=== PATIENT | male | born 2000 | race Caucasian/White ===

== ENCOUNTER → 2021-10-14 | Outpatient (CLI) | payer OTHER ==
--- NOTE | 2021-10-14 15:40 | 2DMMODE ---
[place] [address] 2 D/M-MODE ECHOCARDIOGRAM Name: DOMINICK SINCLAIR Room: [facility].#: [id number] Admission: 10/14/21 Attend Phys: Jeff Grewal Discharge: Date of : 89 Date of Service: 10/14/21 1540 Report #: [id number] THIS REPORT FOR: cc: Cortez Ledesma MD, William MD Holkins,Keshawn Holguin MD [facility] ~ APPROVED REPORT Study performed: 10/14/2021 15:34:23 EXAM: Comprehensive 2D, Doppler, and color-flow Echocardiogram Patient Location: Out-Patient BSA: 2.22 HR: 75 bpm BP: 120/70 mmHg Other Information Study Quality: Good Indications Tachycardia 2D Dimensions IVSd: 11.51 (7-11mm) LVOT Diam: 20.06 (18-24mm) LVDd: 58.60 mm PWd: 9.50 (7-11mm) Ascending Ao: 28.73 (22-36mm) LVDs: 40.14 (25-40mm) Aortic Root: 29.95 mm Volumes Left Atrial Volume (Systole) LA ESV Index: 29.00 mL/m2 Aortic Valve AoV Peak Patrick.: 1.43 m/s AO Peak Gr.: 8.18 mmHg LVOT Max P.93 mmHg AO Mean Gr.: 4.51 mmHg LVOT Mean P.96 mmHg LVOT Max V: 1.22 m/s AO V2 VTI: 28.41 cm LVOT Mean V: 0.79 m/s JUSTIN (VTI): 2.99 cm2 LVOT V1 VTI: 26.84 cm Mitral Valve E/A Ratio: 1.66 [place] [address] 2 D/M-MODE ECHOCARDIOGRAM Name: DOMINICK SINCLAIR [facility] [id number] Admission: 10/14/21 Attend Phys: Jeff Grewal Discharge: Date of : 89 Date of Service: 10/14/21 1540 Report #: [id number] MV Decel. Time: 190.62 ms MV E Max Patrick.: 0.95 m/s MV PHT: 55.28 ms MVA (PHT): 3.98 cm2 TDI E/Lateral E': 4.13 E/Medial E': 5.94 Medial E' Patrick.: 0.16 m/s Lateral E' Patrick.: 0.23 m/s Pulmonary Valve PV Peak Patrick.: 1.30 m/s PV Peak Gr.: 6.78 mmHg Left Ventricle The left ventricle is normal size. There is normal LV segmental wall motion. There is normal left ventricular wall thickness. Left ventricular systolic function is normal. The left ventricular ejection fraction is within the normal range. LVEF is 55-60%. The left ventricular diastolic function is normal. Right Ventricle The right ventricle is normal size. The right ventricular systolic function is normal. Atria The left atrium size is normal. The right atrium size is normal. Aortic Valve The aortic valve is normal in structure. No aortic regurgitation is present. There is no aortic valvular stenosis. Mitral Valve The mitral valve is normal in structure. Trace mitral regurgitation. No evidence of mitral valve stenosis. Tricuspid Valve The tricuspid valve is normal in structure. There is no tricuspid valve regurgitation noted. Pulmonic Valve The pulmonary valve is normal in structure. There is no pulmonic valvular regurgitation. Great Vessels The aortic root is normal in size. IVC [place] [address] 2 D/M-MODE ECHOCARDIOGRAM Name: DOMINICK SINCLAIR Room: [facility]#: [id number] Admission: 10/14/21 Attend Phys: Jeff Grewal Discharge: Date of : 89 Date of Service: 10/14/21 1540 Report #: [id number] collapses >50% with inspiration. Pericardium There is no pericardial effusion. <Conclusion> The left ventricle is normal size. There is normal left ventricular wall thickness. Left ventricular systolic function is normal. The left ventricular ejection fraction is within the normal range. LVEF is 55-60%. The right ventricle is normal size. The left atrium size is normal. The aortic valve is normal in structure. The mitral valve is normal in structure. Trace mitral regurgitation. The tricuspid valve is normal in structure. IVC is normal in size and collapses >50% with inspiration. There is no pericardial effusion. There is normal LV segmental wall motion. <ELECTRONICALLY SIGNED> By: Keshawn Summers MD, [facility] 10/14/21 1540 1540 1540 Keshawn Summers MD, FACC /INF
== END ==
LOC: M.CRD 14:00
PROVIDERS: ATTEND Internal Medicine Cardiovascular Disease
DX: R00.0 Tachycardia, unspecified (principal)